=== PATIENT | male | born 1970 | race Caucasian/White ===

== ENCOUNTER → 2025-04-27 | Outpatient (REF) | payer OTHER ==
[~2025-04-27] MED LIST: IOPAMIDOL 370 MG/ML 100 ML INFUS..BTL INJ ONE; SODIUM CHLORIDE 0.9% 100 ML ONE
[2025-04-27 14:36] LABS: EST GLOMERULAR FILTRATION RATE 63.0 ML/MIN (>=60)
== END ==
LOC: CT 13:44
PROVIDERS: ATTEND Internal Medicine Cardiovascular Disease
DX: R00.2 Palpitations (principal); Z82.49 Family history of ischemic heart disease and other diseases of the circulatory system; Z84.89 Family history of other specified conditions
CPT/HCPCS: 36415; 71275; 82565; 84520; J7050; Q9967